=== PATIENT | female | born 1990 | race Caucasian/White ===

== ENCOUNTER → 2020-01-26 | Outpatient (CLI) | payer BC ==
--- NOTE | 2020-01-26 17:08 | Diagnostic Imaging Report ---
Exam: Lumbar spine MRI without IV contrast History: Right lower back and leg pain. Comparison studies: None Technique: Sagittal and axial T2 , sagittal T1 and IR, axial spin density oblique. Intravenous contrast: None Findings: Number of lumbar vertebral bodies: 5. Alignment: Thoracolumbar levocurvature. Normal lumbar lordosis. Soft tissues: No T2 hyperintense inflammatory changes. Paraspinal muscles: No signal abnormalities. Well-preserved. No atrophic changes Lower thoracic cord: Normal in signal and morphology. The tip of the conus is at T12-L1. Cauda equina: No masses. No arachnoiditis. Vertebrae: Compression fracture, infection or marrow edema. Incidental benign T1 hyperintense T12 vertebral body hemangioma. Degenerative changes: L1-L2: Symmetric disc bulge does not result in canal or foraminal stenosis. L2-L3: Symmetric disc bulge does not result in canal stenosis. L3-L4: Symmetric disc bulge and mildly thickened ligamentum flavum do not result in significant canal stenosis. Patent neural foramina. L4-L5: Mildly degenerated disc with loss of T2 disc signal and loss of disc height posteriorly. Asymmetric right disc bulge and thickened ligamentum flavum result in mild canal stenosis. No significant foraminal stenosis. L5-S1: No abnormalities IMPRESSION: Mild degenerative changes with mild canal stenosis at L4-5 due to a disc bulge. Patent neural foramina. No nerve root impingement. Signed by: Dr. David Cabrera M.D. on 01/26/2020 5:05 PM
== END ==
LOC: MRI 12:42
PROVIDERS: ATTEND Family Medicine
DX: M54.41 Lumbago with sciatica, right side (principal)
CPT/HCPCS: 72148